=== PATIENT | female | born 1970 | race Caucasian/White ===

== ENCOUNTER 2016-08-03 13:30 | Observation (INO) | payer BC ==
[~2016-08-03] VITALS: Ht 157.5 cm; Wt 62.7 kg
--- NOTE | ~2016-08-03 | CON ---
PATIENT'S NAME: ANNY CARRILLO [facility] AGE: 45 Y [address] ROOM: [place] [address] LOCATION: GPCU ADMIT DATE: 08/03/2016 Consultation DISCHARGE DATE: FAMILY PHYSICIAN: Kizzy Gtz MD ATTENDING PHYSICIAN: Kizzy Gtz REFERRING PHYSICIAN: BRANT MARTÍNEZ MD REQUESTING PROVIDER: Dr. Gtz. REASON FOR CONSULTATION: Chest pain. HISTORY OF PRESENTING ILLNESS: The patient is a very pleasant, 45-year-old female with chest discomfort. She noticed it about 10:40 a.m. today, and it was constant about 8 to 10 in severity, and it was initially on the right side of her chest and upper abdomen as well as under her breast, and it radiated to her back as well. She reports it as a squeezing pressure type nature, and at times, it was sharp as well. She did have significant shortness of breath, and chest pain was worse when she took a deep breath in. She does not have any nausea vomiting, diarrhea, constipation, headache, confusion, stroke-like symptoms. The patient does not have any dyspnea on exertion. She also reports since spring, she has had palpitations, notices them more when she is resting or lying down. They usually last about a minute or so and they resolve on their own. REVIEW OF SYSTEMS: All review of systems discussed with the patient. Pertinent positives and negatives mentioned in the history of presenting illness. PAST MEDICAL HISTORY: None. PAST SURGICAL HISTORY: and ankle surgery. SOCIAL HISTORY: The patient does not smoke. No illicit drug abuse or alcohol abuse. 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 FAMILY HISTORY: Positive for cardiomyopathy as well as VT. Her sister at age 47 suddenly. There is positive family history of sudden cardiac in 2 family members. Her mom of sudden cardiac at age of 47 while she was watching a basketball game, and her sister at age 47 also when she PATIENT'S NAME: ANNY CARRILLO [facility] AGE: 45 Y [address] ROOM: [place] [address] LOCATION: GPCU ADMIT DATE: 08/03/2016 Consultation DISCHARGE DATE: FAMILY PHYSICIAN: Kizzy Gtz MD ATTENDING PHYSICIAN: Kizzy Gtz was watching TV at the age of 45. ALLERGIES: SULFA. HOME MEDICATIONS: Folic acid with multivitamins daily. PHYSICAL EXAMINATION: VITAL SIGNS: Blood pressure 120/64, heart rate 60s, respirations 12, afebrile, weight is 136, height is 5 feet 2 inches, O2 saturation 99% on room air, BSA 1.64. GENERAL: The patient is well nourished, well developed, not in any apparent distress. NECK: No JVD. Supple. HEENT: Eyes: No xanthelasma. Sclerae white. Mucous membranes moist. Head: Atraumatic, normocephalic. LUNGS: Clear to auscultation bilaterally. HEART: S1, S2. Regular rate and rhythm. No murmurs, gallops, or rubs. ABDOMEN: Soft. Bowel sounds positive. MUSCULOSKELETAL: Able to move the joint, extremities without any significant difficulty. SKIN: Warm and dry. Mood and affect are normal. DIAGNOSTIC STUDIES: EKG normal sinus rhythm, no ST changes suggestive of ischemia or injury pattern. LABORATORY DATA: CPK 59, troponin 0, CK-MB 0.3. D-dimer 221. IMPRESSION: 1. Chest discomfort with typical and atypical features. 2. Family history of premature coronary artery disease as well as sudden cardiac . 3. Palpitations. PLAN: At this time given the family history of VT as well as sudden cardiac and cardiomyopathy, it is important to go ahead and get an echocardiogram for her to assess for structural heart disease. The focus would be to evaluate the RV for possible ARVD as well as HOCM. I will also go ahead and proceed with an exercise treadmill test to evaluate for any ST changes on the ECG, and we will proceed with ischemic workup if PATIENT'S NAME: ANNY CARRILLO [facility] AGE: 45 Y [address] ROOM: [place] [address] [facility] ADMIT DATE: 08/03/2016 Consultation DISCHARGE DATE: FAMILY PHYSICIAN: Kizzy Gtz MD ATTENDING PHYSICIAN: Kizzy Gtz necessary. Her chest discomfort is not very convincing for presence of obstructive coronary artery disease. We will admit her and agree with ruling out ACS. We will check lipid profile in a.m. and treat accordingly. Agree with aspirin, as well as Lipitor for now, and then adjust her medications depending on the findings. Thank you very much, Dr. Gtz, for allowing us to participate in the care of Mrs. Carrillo. BRANT MARTÍNEZ MD AT/sandra /[id number] d: 08/04/161 t: 08/10/16 1718, CONSULTATION REPORT
--- NOTE | ~2016-08-03 | ECHO ---
Cardiac Stress Test Demographics Patient Name ANNY BLANKENSHIP Date of Study Patient Number [id number] Visit Number [id number] Date of 1970 Room Number G6335 Gender Female Number Age 45 year(s) Referring Omar Villeda Interpreting MONCHO Thoa Muller Physician Physician Omar Villeda MD Physician Ordering Omar Villeda Copywriting Intern Physician MD Supervising Omar Villeda Stress Motor Vehicle Assembler MD/MLP Nurse Gilda Lambert RN Procedure Type of Study Cardiac Stress Test:TREADMILL STRESS TEST. Indications:Chest pain. Conclusions Summary Positive ECG portion of exercise stress test for inducible ischemia. Initially planned ETT but due to significant ST depressions in inferior and V4-6 leads, nuclear dose injected at peak stress. Await nuclear images. Due to need to wait for nuclear tech to get dose on urgent basis, treadmill held at stage 2 so patient could keep exercising till dose available. She did exercise for 13:06 minutes (at stage 2). Stress Protocol Rest ECG Normal sinus rhythm Resting HR:73 bpmResting BP:117/76 mmHg Pre-Stress Physical Exam reg rhythm Stress Peak HR: 181 bpm HR Response: Appropriate Peak BP: 166/82 mmHg BP Response: Appropriate Predicted HR: 177 bpm HR BP Product: 46973 % of predicted HR: 102 Reason for Termination: Dyspnea Exercise Effort: Good ECG ST segment depression in inferior and leads V4-6 at peak stress suggestive of ischemia. Arrhythmias [address] and inferior/lateral -horizontal. No arrhythmias noted. Symptoms Shortness of breath. Signature dtt: BRANT MARTÍNEZ dtd: 08/04/16 [facility] Physician Self Edit
--- NOTE | ~2016-08-03 | ECHO ---
Transthoracic Echocardiography Report (TTE) Demographics Patient Name NANY BLANKENSHIP Date of Study 08/04/2016 Patient Number [id number] Visit Number [id number] Date of 1970 Room Number G6335 Accession Number [id number] Gender Female Age 45 year(s) Referring Ulisses Narvaez MD Superintendent Compressor Stations Esthela Talavera [facility], Physician RVT Physician Interpreting Omar Villeda Geophysical Prospecting Surveyor Physician Supervising Ordering Physician Ulisses Narvaez MD, MD/P Nurse Stress Clinical Microbiologist Conclusions Contractility Score Summary Normal Left Ventricular contractility was noted. Summary Normal LV/RV size and systolic function. The estimated left ventricular ejection fraction is 55-60%. Normal echocardiogram with no evidence of valvular abnormalities. Procedure Type of Study TTE procedure:2D Echocardiogram. Procedure Date Date: 08/04/2016 Start: 08:16 AM Study Location: Inpatient Portable Technical Quality: Adequate visualization Indications:Chest pain. Appropriate Use Criteria: 9 Patient Status: Routine Rhythm: NSR HR: 62 bpm BP: 130/60 mmHg M-Mode/2D Measurements LV Diastolic Dimension: 4.18 cm LV Systolic Dimension: 3.02 cm LV Septum Diastolic: 0.76 cm LV PW Diastolic: 0.83 cm Cardiac Output: 3.07 l/min LA Dimension: 2.3 cm LVOT: 1.7 cm LVOT VTI: 21.8 cm RV Base: 2.65 cm LV Stroke volume: 49.46 ml RV Length: 5.72 cm TAPSE: 2.47 cm TDI-S': 15.6 cm/s Doppler Measurements AV Peak Velocity: 1.06 m/s MV Peak E-Wave: 0.71 m/s AV Peak Gradient: 4.49 mmHg MV Peak A-Wave: 0.54 m/s AV Mean Gradient: 3 mmHg MV E/A Ratio: 1.3 LVOT Peak Velocity: 0.88 m/s MV Deceleration Time: 250 msec TR Velocity:1.53 m/s PV Peak Velocity: 0.71 m/s TR Gradient:9.36 mmHg PV Peak Gradient: 2.01 mmHg Estimated RAP:5 mmHg Estimated PASP: 14.36 mmHg Estimated RVSP: 14 mmHg A' Septal Velocity: 0.08 m/s E' Septal Velocity: 0.11 m/s A' Lateral Velocity: 0.08 m/s E' Lateral Velocity: 0.12 m/s Findings Left Ventricle The left ventricle is normal in size . Diastolic assessment reveals normal relaxation. Right Ventricle Normal right ventricle structure and function. Left Atrium Normal left atrial size. Right Atrium Normal right atrial size. IVC imaging is consistent with normal RA pressures. Mitral Valve Normal mitral valve structure and function. Aortic Valve Normal aortic valve structure and function. Tricuspid Valve Trivial tricuspid regurgitation by color Doppler. Pulmonic Valve Normal pulmonic valve structure and function. Pericardial Effusion No evidence of pericardial effusion. Miscellaneous Visualized portions of the aortic root and ascending aorta appear normal in size. Pleural Effusion No evidence of pleural effusion. Contractility Score LV regional wall motion:(0-Non visualized 1-Normal 2-Hypokinesis 3-Akinesis 4-Dyskinesis 5-Aneurysm) Signature dtt: BRANT MARTÍNEZ dtd: 08/04/16 0816 Physician Self Edit
--- NOTE | ~2016-08-03 | ECHO ---
Cardiac Stress Test Demographics Patient Name ANNY BLANKENSHIP Date of Study 08/04/2016 Patient Number [id number] Visit Number [id number] Date of 1970 Room Number G6335 Gender Female Number Age 45 year(s) Referring Omar Villeda Interpreting MONCHO Muller Physician Physician Omar Villeda MD Physician Ordering Omar Villeda Janitor Caretaker Physician Supervising Omar Villeda Stress Safety Grooving Machine Operator /MLMarietta MARCANO Nurse Gilda Lambert RN Procedure Type of Study Cardiac Stress Test:TREADMILL STRESS TEST. Procedure Date Date: 08/04/2016 Start: 10:51 AM Indications:Chest pain. Conclusions Summary Positive ECG portion of exercise stress test for inducible ischemia. Initially planned ETT but due to significant ST depressions in inferior and V4-6 leads, nuclear dose injected at peak stress. Await nuclear images. Due to need to wait for nuclear tech to get dose on urgent basis, treadmill held at stage 2 so patient could keep exercising till dose available. She did exercise for 13:06 minutes (at stage 2). Stress Protocol Rest ECG Normal sinus rhythm Resting HR:73 bpmResting BP:117/76 mmHg Pre-Stress Physical Exam reg rhythm Stress Peak HR: 181 bpm HR Response: Appropriate Peak BP: 166/82 mmHg BP Response: Appropriate Predicted HR: 177 bpm HR BP Product: 71829 % of predicted HR: 102 Reason for Termination: Dyspnea Exercise Effort: Good ECG ST segment depression in inferior and leads V4-6 at peak stress suggestive of ischemia. Arrhythmias [address] and inferior/lateral -horizontal. No arrhythmias noted. Symptoms Shortness of breath. Signature dtt: BRANT MARTÍNEZ dtd: 08/04/16 1051 Physician Self Edit
--- NOTE | ~2016-08-03 | HP ---
PATIENT'S NAME: ANNY BLANKENSHIP [facility] AGE: 45 Y [address] ROOM: G6335 [place], [place] [address] [facility] ADMIT DATE: 08/03/2016 History & Physical DISCHARGE DATE: FAMILY PHYSICIAN: Kizzy Gtz MD ATTENDING PHYSICIAN: Kizzy Gtz DATE OF SERVICE: CHIEF COMPLAINT: Chest pain. HISTORY OF PRESENT ILLNESS: The patient is a 45-year-old female presents to the [facility] today to be seen for a chest pain. She states it started at 10:40 this morning when she was reaching across her child with her left arm to help her fast in her seat belt. She had immediate sharp stabbing pain across the chest that radiated underneath the right breast into the middle of her back. The pressure was described as stabbing, squeezing, aching and sharp. The pain seemed to get worse whenever she took in a deep breath. She denied any pallor or diaphoresis. Denied any shortness of breath. She has no previous history of chest pain. Took [address] By the time she arrived to the clinic, the chest pain and the pain below her right breast had resolved, but it was still present in the middle of her back. She reports that whenever she takes in a deep breath, she still has a heaviness in her chest. She has a very strong family history of heart disease. Her grandmother of a presumed heart attack in her 60s. Her mom of sudden cardiac at the age of 47 and her sister of sudden cardiac at the age of 43 while sitting on the couch watching TV. She has seen Dr. Díaz, medical anthropologist in the past. It was about 6 years ago right after her sister had . She had a Holter monitor done as well as an echo. She thinks she last had her lipids checked about 2 years ago during a physical with Dr. Gonzalez and she thinks they were normal. She also reports her last menstrual period was approximately 07/02/2016 and she is 1 day late. Her has had a vasectomy. PAST MEDICAL HISTORY: None. PAST SURGICAL HISTORY: Ankle surgery and . ALLERGIES: SULFA. FAMILY HISTORY: History of heart disease with sudden cardiac in her mom, maternal PATIENT'S NAME: ANNY BLANKENSHIP [facility] AGE: 45 Y [address] ROOM: G6335 [place], [place] [address] [facility] ADMIT DATE: 08/03/2016 History & Physical DISCHARGE DATE: FAMILY PHYSICIAN: Kizzy Gtz MD ATTENDING PHYSICIAN: Kizzy Gtz grandmother, and sister. High blood pressure in her brother and sister. Cancer in her father and maternal grandfather. REPRODUCTIVE HISTORY: Last menstrual period was 07/02/2016. She is a G5, P2-1-2-3. 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 She lives at home with her and her children. Rare social alcohol use. Rare caffeine use. Nonsmoker. REVIEW OF SYSTEMS: She denies any fevers, chills. Denies any body aches or fatigue. Denies any headache, sore throat, runny nose, or earache. She has chest pain. Denies shortness of breath. Denies any irregular heartbeat or rapid heart rate. Denies any syncope. She does report feeling heaviness in her chest when she takes a deep breath. Denies any cough. Denies any nausea, vomiting, diarrhea, constipation, or abdominal pain. She does admit to pain in the middle of her back. Denies any depression or anxiety. PHYSICAL EXAMINATION: VITAL SIGNS: Blood pressure 122/62, heart rate 64, respiratory rate 18, temperature 97.7, weight 136 pounds 4 ounces. Height 5 feet 2 inches. O2 saturation 99% on room air. GENERAL: She is awake, alert, and oriented. No signs of distress. NECK: Supple without lymphadenopathy. Thyroid palpates normal. Nontender. No masses or nodules palpated. Trachea is midline. HEART: Regular rate and rhythm without murmur. LUNGS: Clear to auscultation throughout. No crackles or wheezing noted. ABDOMEN: Soft, nontender, nondistended. No masses palpated. No guarding or rebound tenderness. MUSCULOSKELETAL: She has no pain with palpation of the anterior chest wall. SKIN: No evidence of rash. PSYCH: Mood and affect are appropriate. LABORATORY DATA AND X-RAY: D-dimer is normal. Two-view chest x-ray appears normal on my review, but will be sent on to Radiology for over-read. EKG shows normal sinus rhythm. First set of cardiac enzymes are normal. Serum test is negative. ASSESSMENT AND PLAN: Chest pain in this 45-year-old female with a remarkable family history of heart issues involving sudden cardiac in her sister, her mom and her maternal grandmother; all at a young age. I discussed the case with medical anthropologist, Dr. Aviles. She agrees with admission to the hospital for observation. We will plan to do serial cardiac enzymes. Repeat EKG in the PATIENT'S NAME: ANNY BLANKENSHIP [facility] AGE: 45 Y [address] ROOM: [place] [address] LOCATION: [facility] ADMIT DATE: 08/03/2016 History & Physical DISCHARGE DATE: FAMILY PHYSICIAN: Kizzy Gtz MD ATTENDING PHYSICIAN: Kizzy Gtz . Plan for an echo in the morning. We will start on a full aspirin today and a baby aspirin daily after that. We will also start her on Lipitor 40 mg daily and get fasting lipids in the morning. MD AN BAUTISTA/modl /[id number] D: 311 T: 830 HISTORY & PHYSICAL
--- NOTE | ~2016-08-03 | ESTC ---
Cardiac Perfusion Imaging Demographics Patient Name KRZYSZTOF [place] Gender Female Patient Number [id number] Race Visit Number [id number] Ethnicity Corporate ID Room Number G6335 Accession Number [id number] Height 62 inches Date of 1970 Weight 136 pounds Interpreting Omar Villeda Date of study 08/04/2016 Physician Supervising /JUAN Villeda NM Technologist Salvatore Wyatt MD Ordering Physician Omar Villeda Stress MD vehicle operator technician Stress ECG Reading Omar Villeda Nurse Gilda Lambert Physician county court judge Procedure Type: Nuclear Stress Test:Exercise, Cardiolite Stress Test Procedure Start time: 08/04/2016 00:00 Indications: Chest pain. Risk Factors The patient risk factors include:family history of premature CAD. Conclusions Impression ECG portion of the exercise stress test is clinically positive for ischemia by diagnostic criteria. Myocardial perfusion imaging is mildly abnormal. The images reveal a reversible defect in the anterior wall consistent with ischemia . Overall left ventricular systolic function was normal. This is a low risk stress test. LVEF is 66% and TID ratio is 1.19. There are no previous studies for comparison . Stress Protocols Resting ECG NSR Pre-stress physical exam: clear lungs reg rhythm Stress Protocol:Exercise Predicted HR: 177 bpm Stress Interpretation Positive ECG portion of exercise stress test for inducible ischemia. Initially planned ETT but due to significant ST depressions in inferior and V4-6 leads, nuclear dose injected at peak stress. Await nuclear images. Due to need to wait for nuclear tech to get dose on urgent basis, treadmill held at stage 2 so patient could keep exercising till dose available. She did exercise for 13:06 minutes (at stage 2). Imaging Results High risk findings Summed scores - Summed stress score: 10 - Summed rest score: 4 - Summed difference score: 6 Stress ejection Ejection fraction:67 % EDV :78 ml ESV :26 ml Stroke volume :52 ml LV mass :112 gr Imaging Protocols Rest Stress Isotope:Other Isotope: Tc99m Sestamibi IV Isotope dose:16.2 mCi Isotope dose:31.2 mCi Date:08/05/2016 08:55 Date:08/04/2016 11:13 Technique: SPECT Technique: Gated Supine SPECT Supine IV remains in place after procedure. Scan Time:45-60 minutes post injection Medical History Admission Data Admission date: 08/03/2016 Admission Time: 13:36 Hospital Status: Inpatient. Signatures dtt: BRANT MARTÍNEZ dtd: 08/04/16 0000 Physician Self Edit
[2016-08-03] MEDS ORDERED: MULTI-VITAMIN1 EAC1 PO (15:29)
[2016-08-03 15:52] LABS: BASOPHIL # 0.1 K/uL (0.0-0.2); BASOPHIL % 0.7 %; EOSINOPHIL # 0.1 K/uL (0.0-0.5); HEMATOCRIT 35.2 % (33.0-46.0); HEMOGLOBIN 11.7 g/dL (10.0-15.0); IMMATURE GRANULOCYTE % 0.3 %; LYMPHOCYTE # 1.9 K/uL (0.8-4.0); LYMPHOCYTE % 26.4 %; MCH 29.5 pg (27.0-34.0); MCHC 33.2 gm/dL (32.0-36.5); MCV 88.9 fl (83.0-98.0); MONOCYTE # 0.4 K/uL (0.0-1.0); MPV 11.1 fl (9.4-12.4); NEUTROPHIL # (ANC) 4.8 K/uL (1.8-7.8); NEUTROPHIL % 66.6 %; NRBC % 0 /100WBC (0-0.00); PLATELET COUNT 185 K/uL (150-450); RDW-CV 12.8 % (11.9-14.6); WBC 7.2 K/uL (4.0-11.0)
[2016-08-03 15:53] LABS: RBC 3.96 M/uL (3.50-5.50)
[2016-08-03 16:11] LABS: CPK 57 IU/L (21-215)
[2016-08-03 16:17] LABS: ALBUMIN 3.8 gm/dL (3.5-5.0); ALK PHOS 56 IU/L (33-138); ALT 15 IU/L (12-78); ANION GAP 11.5 (10.0-19.0); AST 16 IU/L (10-40); BLOOD UREA NITROGEN 9 mg/dL (6-24); CALCIUM 8.5 mg/dL (8.5-10.5); CHLORIDE 108 mMol/L (96-110); CO2 24 mMol/L (22-32); CREATININE 0.8 mg/dL (0.5-1.1); ESTIMATED GFR (MDRD EQUATION) > 60; POTASSIUM 3.5 mMol/L (3.7-5.1); SODIUM 140 mMol/L (135-145); TOTAL BILIRUBIN 0.5 mg/dL (0.0-1.5); TOTAL PROTEIN 7.1 g/dL (6.0-8.4)
[2016-08-04 01:19] LABS: CPK 68 IU/L (21-215)
--- NOTE | 2016-08-04 03:35 | NUR ---
Pt A&Ox4, VSS on RA throughout shift, denies any chest pain or other cardiac symptoms throughout shift. Voiding and taking PO without issue. Up with SBA/independently. NPO since midnoc, will have labs, fasting lipids, ECHO, and exercise stress test this AM. Pleasant and cooperative with cares.
[2016-08-04 07:57] LABS: CPK 61 IU/L (21-215)
--- NOTE | 2016-08-04 18:23 | NUR ---
Significant Event:Patient had exercise stress test today. Then was injected for Nuclear med portion d/t ST changes during exercise prtion. Will have another injection in morning and more pictures. If goes home needs to fitted with Halter monitor before dc. No c/o chest pain. Follow up:Home tomorrow?
--- NOTE | 2016-08-05 04:17 | NUR ---
Pt vss on RA, afebrile, up ad carly. denies chest pain/n/v. No numbness/tingling. Plan: NPO for "medication stress test," Possible d/c post- will need halter monitor applied
[2016-08-05] MEDS ORDERED: LIPITOR40 MG PO (11:08)
--- NOTE | 2016-08-05 12:04 | NUR ---
Significant Event: A/O x3, cooperative with cares. VSS, SBPs 100-110s, HRs 60-70s, on room air. No c/o pain this shift. To nuclear med for resting pictures of a lexiscan. Up in room ad carly; ambulate guidry x3 laps without difficulty. Dismissal instructions given to patient et ; verbalized understanding. Dimissed to front lobby per w/c accompanied by nursing faculty. Follow up:
== END 2016-08-05 12:00 | disposition disaster alternative care site (69) ==
LOC: GPCU 13:36
PROVIDERS: ADMIT Family Medicine
DX: R07.89 Other chest pain (principal); R00.2 Palpitations; Z88.2 Allergy status to sulfonamides; Z98.890 Other specified postprocedural states; Z82.49 Family history of ischemic heart disease and other diseases of the circulatory system
CPT/HCPCS: A9500; G0378; G0379

== ENCOUNTER → 2016-08-10 | Outpatient (CLI) | payer SELFPAY ==
[~2016-08-10] MED LIST: LIPITOR40 MG PO; MULTI-VITAMIN1 EAC1 PO
--- NOTE | ~2016-08-10 | OR ---
PATIENT'S NAME: ANNY BLANKENSHIP [facility] AGE: 45 Y [address] ROOM: [place] [address] LOCATION: [facility] ADMIT DATE: 08/10/2016 OR/Procedure Report DISCHARGE DATE: FAMILY PHYSICIAN: Kizzy Gtz MD ATTENDING PHYSICIAN: RBANT MARTÍNEZ SURGEON: Josiah Valdez MD CASHIER GAMBLING: DATE OF PROCEDURE: 08/10/2016 PROCEDURE: CT angiogram report. INDICATION FOR STUDY: The patient with chest pain, positive stress test. DESCRIPTION OF PROCEDURE: The procedure was described to the patient and informed consent was obtained. Calcium scoring was obtained followed by CT angiogram. Total Agatston score is 0. The quality of this study was suboptimal due to fluctuations in heart rate and motion artifact. The left main coronary artery arises from the left coronary cusp. It divides into left anterior descending artery and circumflex coronary artery. No significant disease was noted in the visualized proximal segment; however, mid left anterior descending artery and circumflex coronary arteries were not visualized well. The right coronary artery arises from the right coronary cusp and is a dominant vessel. No significant disease was noted in the right coronary artery in the visualized segments. IMPRESSION: 1. Total Agatston score 0. 2. Nondiagnostic CT angiogram due to motion artifact. MD JAYSON JEFFERY/chikal /[id number] d: 08/11/16 2342 t: 08/17/16 1530, OPERATIVE SUMMARY
== END | disposition disaster alternative care site (69) ==
LOC: GPOC 08-09 10:00 → GRAD 12:02
DX: I25.10 Atherosclerotic heart disease of native coronary artery without angina pectoris (principal)
CPT/HCPCS: J2001; Q9967